=== PATIENT | female | born 1955 | race Caucasian/White ===

== ENCOUNTER 2020-05-13 09:34 | Day surgery (SDC) | payer BC, OTHER ==
[2020-05-13] MEDS ORDERED: Dextrose 5%-Lactated Ringers 1,000 ML IV SCH (10:00)
[2020-05-13] MEDS ORDERED: Propofol 200 MG/20 ML SDV ONE (10:41)
[2020-05-13] MEDS ORDERED: fentaNYL 100 MCG/2 ML SDV ONE (10:41)
[2020-05-13] MEDS ORDERED: Midazolam 1 MG/ML 2 ML SDV ONE (10:41)
[2020-05-13] MEDS ORDERED: Glycopyrrolate 0.2 MG/ML 2 ML SDV IVPUSH ONE (10:45)
--- NOTE | 2020-05-20 15:42 | OR ---
DATE OF PROCEDURE: 05/13/2020 SURGEON: Nino Johnson MD PREOPERATIVE DIAGNOSIS: Probable gastroesophageal reflux disease. POSTOPERATIVE DIAGNOSES: 1. Mild gastroesophageal reflux disease with possible Ash's esophagus. 2. Moderate amount of bile retention with associated mild gastritis involving the gastric body and antrum. OPERATIVE PROCEDURE: Esophagogastroduodenoscopy with: 1. Biopsy of the esophagogastric junction for histologic evaluation. 2. Biopsies of antrum for CLOtest. ANESTHESIA: IV sedation. INDICATIONS FOR PROCEDURE: This is a 64-year-old female presenting with some intermittent breakthrough reflux-type symptoms. She originally was moved up to a once a day to twice a day omeprazole 20 mg dosing pattern and with this feels that her symptoms are quite a bit improved. Plan is to proceed with upper GI endoscopy with biopsies as indicated. Potential risks including bleeding and perforation were discussed and the patient wishes to proceed. DETAILS OF PROCEDURE: The patient was taken to the operating room and placed in a left lateral decubitus position. IV sedation was administered after which the upper GI endoscope was passed orally through the length of the esophagus and into the stomach with retroflexion view of the fundus, thereafter through the pyloric channel and into the proximal duodenum. Findings included normal hypopharynx, larynx, upper esophageal sphincter, and esophageal body. At the EG junction, a very small hiatal hernia was present. There was some upward extension of the gastroesophageal junction mucosal line and both some elongated peninsular- type configurations as well as some small islands of columnar mucosa above the level of the upper gastric folds. There was no plaquing or stricturing or suggestion of neoplastic change. Within the stomach, there was a mild amount of bile retention with some mild redness of the gastric body and antrum, but without erosions or ulcers. The visualized portions of the pyloric channel and duodenum were unremarkable. At this point, biopsies were obtained from the antrum and sent for CLOtest for H. pylori. Multiple biopsies were then obtained from the esophagogastric junction and sent for histologic evaluation. Minimal bleeding from the biopsy sites was seen and the procedure then concluded. At this point, we will have the patient continue the b.i.d. Prilosec dosing and the patient will be following up with Colt Oliver CNP at [facility] in roughly 1 month. If the biopsy shows Ash's esophagus, then she should be enrolled in a surveillance followup endoscopic schedule probably in the range of every 2 years. If over time, her symptoms become refractory to medical management, then surgical consultation once again can be obtained to consider surgical management. Nino Johnson MD /[id number]
== END 2020-05-13 13:35 | disposition home or self-care (01) ==
LOC: JP.SDS 09:34
PROVIDERS: ATTEND Surgery
DX: K31.89 Other diseases of stomach and duodenum (principal); K29.50 Unspecified chronic gastritis without bleeding; E78.70 Disorder of bile acid and cholesterol metabolism, unspecified; F17.210 Nicotine dependence, cigarettes, uncomplicated; K21.9 Gastro-esophageal reflux disease without esophagitis; Z88.8 Allergy status to other drugs, medicaments and biological substances
CPT/HCPCS: 43239; 87081; J2250; J2704; J3010; J3490; J7121; 88305

== ENCOUNTER → 2021-03-19 | Day surgery (SDC) | payer MEDICARE, OTHER ==
[~2021-03-19] MED LIST: Midazolam 1 MG/ML 2 ML SDV ONE; Propofol 200 MG/20 ML SDV ONE; Sodium Chloride 0.9% 1,000 ML IV SCH; fentaNYL 100 MCG/2 ML SDV ONE
--- NOTE | 2021-03-19 14:19 | OR ---
DATE OF PROCEDURE: 03/19/2021 SURGEON: Moses Moreno MD PROCEDURE PERFORMED: Colonoscopy. FINDINGS: Normal colonoscopy. COMPLICATIONS: None. PROTECTIVE SERVICES CASE WORKER: None. ANESTHESIA: MAC. PREOPERATIVE DIAGNOSIS: Screening colonoscopy. POSTOPERATIVE DIAGNOSIS: Screening colonoscopy. RISKS: Risks, benefits, alternatives, and limitations including, but not limited to infection, bleeding, perforation, false positives, and false negatives were explained to the patient, and she wished to proceed. PROCEDURE IN DETAIL: The patient was placed in the left lateral decubitus position. Digital rectal exam was performed without abnormality. The scope was introduced and advanced atraumatically to the ileocecal valve. A photo was taken. The scope was brought back to the ascending, transverse, and descending colon, and retroflexed. No evidence of old or new blood. No masses. No polyps. Greater than 8 minutes was spent on removing the scope. The patient tolerated the procedure well. Greater than 90% of the luminal surface could be seen. Moses Moreno MD /[id number]
== END ==
LOC: JP.SDS 08:10
PROVIDERS: ATTEND Surgery
DX: Z12.11 Encounter for screening for malignant neoplasm of colon (principal); E78.5 Hyperlipidemia, unspecified; K21.9 Gastro-esophageal reflux disease without esophagitis; M19.90 Unspecified osteoarthritis, unspecified site; F17.210 Nicotine dependence, cigarettes, uncomplicated; Z88.8 Allergy status to other drugs, medicaments and biological substances; E66.9 Obesity, unspecified; Z68.32 Body mass index [BMI] 32.0-32.9, adult
CPT/HCPCS: G0121; J2250; J2704; J3010; J7030

== ENCOUNTER 2022-03-11 06:10 | Day surgery (SDC) | payer MEDICARE, OTHER ==
[2022-03-11] MEDS ORDERED: Ampicillin/Sulbactam Na 1.5 GM in Sodium Chloride 0.9% 50 ML IV ONE ×2 (06:33→07:15)
[2022-03-11] MEDS ORDERED: Dextrose 5%-Lactated Ringers 1,000 ML IV SCH (07:00)
[2022-03-11] MEDS ORDERED: Midazolam 1 MG/ML 2 ML SDV ONE (07:12)
[2022-03-11] MEDS ORDERED: fentaNYL 100 MCG/2 ML SDV ONE (07:12)
[2022-03-11] MEDS ORDERED: Propofol 200 MG/20 ML SDV ONE (07:12)
[2022-03-11] MEDS ORDERED: Glycopyrrolate 0.2 MG/ML 2 ML SDV IVPUSH ONE (07:15)
== END 2022-03-11 09:00 | disposition home or self-care (01) ==
LOC: JP.SDS 06:10
PROVIDERS: ATTEND Surgery
DX: K29.60 Other gastritis without bleeding (principal); K20.90 Esophagitis, unspecified without bleeding; K44.9 Diaphragmatic hernia without obstruction or gangrene; Z01.812 Encounter for preprocedural laboratory examination; Z20.822 Contact with and (suspected) exposure to COVID-19; Z87.19 Personal history of other diseases of the digestive system
CPT/HCPCS: 43239; 87081; J0295; J2250; J2704; J3010; J3490; J7121; U0002; 88305

== ENCOUNTER 2023-10-19 07:31 | Day surgery (SDC) | payer MEDICARE, OTHER ==
[~2023-10-19 07:31] MED LIST changes: -Sodium Chloride 0.9% 1,000 ML IV SCH; -fentaNYL 100 MCG/2 ML SDV ONE; +fentaNYL 50 MCG/ML SDV ONE
[2023-10-19] MEDS: Lactated Ringers 1,000 ML IV SCH (07:55)
== END 2023-10-19 10:40 | disposition home or self-care (01) ==
LOC: JP.SDS 07:31
PROVIDERS: ATTEND Student in an Organized Health Care Education/Training Program
DX: K29.50 Unspecified chronic gastritis without bleeding (principal); K21.9 Gastro-esophageal reflux disease without esophagitis; D84.821 Immunodeficiency due to drugs; M06.9 Rheumatoid arthritis, unspecified; E78.5 Hyperlipidemia, unspecified; F17.200 Nicotine dependence, unspecified, uncomplicated; Z79.899 Other long term (current) drug therapy
CPT/HCPCS: 43239; 88305; J2250; J2704; J3010; J7120